=== PATIENT | female | born 1975 | race Caucasian/White ===

== ENCOUNTER 2017-06-09 18:29 | Emergency (ER) | payer BC ==
[~2017-06-09] VITALS: Ht 170.2 cm; Wt 94.0 kg
[~2017-06-09 18:29] MED LIST: CIPR500T4 PO; LORTA5 PO
[2017-06-09 20:15] VITALS: BP 146/84; PULSE 93; RESP 20; TEMP 97.7; O2SAT 97
--- NOTE | 2017-06-09 21:41 | PD ---
HPI Chief Complaint: Abdominal Pain Time Seen by Provider: 21:33 Travel History International Travel<30 days: No Contact w/Intl Traveler<30days: No Traveled to known affect area: No History of Present Illness HPI 41-year-old female presents emergency department for evaluation of right-sided flank pain. This began yesterday morning. Pain is intermittently sharp. She states sometimes it radiates around to the front, left. Patient denies any fever or chills. She has been mildly nauseous. Denies any urinary symptoms. No changes in bowel. No other symptoms to report. PFSH Past Medical History Blood Disorders: No Cancer: Yes (CERVICAL) Cardiovascular Problems: No Chemotherapy: No Endocrine: No Gastrointestinal Disorders: No Genitourinary: No Immune Disorder: No Musculoskeletal: No Neurologic: No Psychiatric: No Reproductive: No Respiratory: No Radiation Therapy: No ?: Unknown LMP: 05/25/16 : 3 Para: 2 Ectopic : Yes Tubal Ligation: Yes Past Surgical History Abdominal Surgery: Yes Cholecystectomy: Yes Gynecologic Surgery: Yes (CERVICAL CA FROZEN) Neurologic Surgery: No Pacemaker: No Other Surgery: Yes (LEFT BREAST BIOPSY) Social History Alcohol Use: Yes (social) Tobacco Use: Yes Substance Use: No Allergies-Medications (Allergen,Severity, Reaction): Coded Allergies: hydromorphone (Unverified Allergy, Severe, Itching, 10/20/16) propofol (Verified Allergy, Severe, 06/09/17) Reported Meds & Prescriptions Reported Meds & Active Scripts Active Zofran Odt (Ondansetron Odt) 4 Mg Tab 4 Mg SL Q8HR PRN Ultram (Tramadol HCl) 50 Mg Tab 50 Mg PO Q8H PRN Cipro (Ciprofloxacin HCl) 500 Mg Tab 500 Mg PO BID 7 Days Review of Systems Except as stated in HPI: all other systems reviewed are Neg Physical Exam Narrative GENERAL: Well-nourished female patient, no acute distress. SKIN: Focused skin assessment warm/dry. HEAD: Atraumatic. Normocephalic. EYES: Pupils equal and round. No scleral icterus. No injection or drainage. ENT: No nasal bleeding or discharge. Mucous membranes pink and moist. NECK: Trachea midline. No JVD. CARDIOVASCULAR: Regular rate and rhythm. No murmur appreciated. RESPIRATORY: No accessory muscle use. Clear to auscultation. Breath sounds equal bilaterally. GASTROINTESTINAL: Abdomen soft, non-tender, nondistended. Hepatic and splenic margins not palpable. MUSCULOSKELETAL: No obvious deformities. No clubbing. No cyanosis. No edema. Right CVA tenderness. NEUROLOGICAL: Awake and alert. No obvious cranial nerve deficits. Motor grossly within normal limits. Normal speech. PSYCHIATRIC: Appropriate mood and affect; insight and judgment normal. Data Data Last Documented VS Vital Signs Date Time Temp Pulse Resp B/P (MAP) Pulse Ox O2 Delivery O2 Flow Rate FiO2 06/09/17 20:15 97.7 93 20 146/84 (104) 97 Orders Orders Complete Blood Count With Diff (06/09/17 20:17) Comprehensive Metabolic Panel (06/09/17 20:17) Urinalysis - C+S If Indicated (06/09/17 20:17) Iv Access Insert/Monitor (06/09/17 20:17) Oxygen Administration (06/09/17 20:17) Oximetry (06/09/17 20:17) Lipase (06/09/17 20:17) Ct Abd/Pel W/O Iv Contrast (06/09/17 ) Ed Urine Pregnancytest Poc (06/09/17 21:41) Urine Culture (06/09/17 20:47) Ed Discharge Order (06/09/17 22:42) Labs Laboratory Tests Test 06/09/17 20:47 White Blood Count 15.5 TH/MM3 Red Blood Count 4.76 MIL/MM3 Hemoglobin 13.2 GM/DL Hematocrit 39.7 % Mean Corpuscular Volume 83.4 FL Mean Corpuscular Hemoglobin 27.8 PG Mean Corpuscular Hemoglobin Concent 33.4 % Red Cell Distribution Width 15.0 % Platelet Count 305 TH/MM3 Mean Platelet Volume 9.5 FL Neutrophils (%) (Auto) 75.5 % Lymphocytes (%) (Auto) 17.3 % Monocytes (%) (Auto) 6.5 % Eosinophils (%) (Auto) 0.4 % Basophils (%) (Auto) 0.3 % Neutrophils # (Auto) 11.7 TH/MM3 Lymphocytes # (Auto) 2.7 TH/MM3 Monocytes # (Auto) 1.0 TH/MM3 Eosinophils # (Auto) 0.1 TH/MM3 Basophils # (Auto) 0.0 TH/MM3 CBC Comment DIFF FINAL Differential Comment Urine Color BROWN Urine Turbidity HAZY Urine pH 6.0 Urine Specific [place] 1.012 Urine Protein TRACE mg/dL Urine Glucose (UA) NEG mg/dL Urine Ketones NEG mg/dL Urine Occult Blood SMALL Urine Nitrite POS Urine Bilirubin NEG Urine Urobilinogen 8.0 MG/DL Urine Leukocyte Esterase MOD Urine RBC 10 /hpf Urine WBC 58 /hpf Urine Squamous Epithelial Cells 5 /hpf Urine Bacteria FEW /hpf Urine Mucus FEW /lpf Microscopic Urinalysis Comment CULTURE INDICATED Blood Urea Nitrogen 9 MG/DL Creatinine 0.83 MG/DL Random Glucose 93 MG/DL Total Protein 7.7 GM/DL Albumin 3.7 GM/DL Calcium Level 9.4 MG/DL Alkaline Phosphatase 67 U/L Aspartate Amino Transf (AST/SGOT) 12 U/L Alanine Aminotransferase (ALT/SGPT) 21 U/L Total Bilirubin 0.3 MG/DL Sodium Level 140 MEQ/L Potassium Level 4.3 MEQ/L Chloride Level 106 MEQ/L Carbon Dioxide Level 28.7 MEQ/L Anion Gap 5 MEQ/L Estimat Glomerular Filtration Rate 76 ML/MIN Lipase 146 U/L MDM Medical Decision Making Medical Screen Exam Complete: Yes Emergency Medical Condition: Yes Medical Record Reviewed: Yes Differential Diagnosis Cystitis versus pyelonephritis versus renal calculi versus biliary colic versus renal colic Narrative Course 41-year-old female presents emergency department for evaluation. Patient appears without distress. Vital signs are stable. She does have right CVA tenderness. Lab work is complete and reviewed. Laboratory Tests Test 06/09/17 20:47 White Blood Count 15.5 TH/MM3 Red Blood Count 4.76 MIL/MM3 Hemoglobin 13.2 GM/DL Hematocrit 39.7 % Mean Corpuscular Volume 83.4 FL Mean Corpuscular Hemoglobin 27.8 PG Mean Corpuscular Hemoglobin Concent 33.4 % Red Cell Distribution Width 15.0 % Platelet Count 305 TH/MM3 Mean Platelet Volume 9.5 FL Neutrophils (%) (Auto) 75.5 % Lymphocytes (%) (Auto) 17.3 % Monocytes (%) (Auto) 6.5 % Eosinophils (%) (Auto) 0.4 % Basophils (%) (Auto) 0.3 % Neutrophils # (Auto) 11.7 TH/MM3 Lymphocytes # (Auto) 2.7 TH/MM3 Monocytes # (Auto) 1.0 TH/MM3 Eosinophils # (Auto) 0.1 TH/MM3 Basophils # (Auto) 0.0 TH/MM3 CBC Comment DIFF FINAL Differential Comment Urine Color BROWN Urine Turbidity HAZY Urine pH 6.0 Urine Specific [place] 1.012 Urine Protein TRACE mg/dL Urine Glucose (UA) NEG mg/dL Urine Ketones NEG mg/dL Urine Occult Blood SMALL Urine Nitrite POS Urine Bilirubin NEG Urine Urobilinogen 8.0 MG/DL Urine Leukocyte Esterase MOD Urine RBC 10 /hpf Urine WBC 58 /hpf Urine Squamous Epithelial Cells 5 /hpf Urine Bacteria FEW /hpf Urine Mucus FEW /lpf Microscopic Urinalysis Comment CULTURE INDICATED Blood Urea Nitrogen 9 MG/DL Creatinine 0.83 MG/DL Random Glucose 93 MG/DL Total Protein 7.7 GM/DL Albumin 3.7 GM/DL Calcium Level 9.4 MG/DL Alkaline Phosphatase 67 U/L Aspartate Amino Transf (AST/SGOT) 12 U/L Alanine Aminotransferase (ALT/SGPT) 21 U/L Total Bilirubin 0.3 MG/DL Sodium Level 140 MEQ/L Potassium Level 4.3 MEQ/L Chloride Level 106 MEQ/L Carbon Dioxide Level 28.7 MEQ/L Anion Gap 5 MEQ/L Estimat Glomerular Filtration Rate 76 ML/MIN Lipase 146 U/L CBC is with leukocytosis of 15.5. CMP is without acute concern. Urinalysis is hazy with small occult blood, positive nitrate, moderate leukocyte esterase, 58 WBC. Patient will be treated for pyelonephritis. I have explained her that since she does not have a fever and the stone is very small with no hydronephrosis, we will attempt outpatient antibiotic first. She agrees to return immediately with any acute worsening symptoms. Diagnosis Primary Impression: Nephrolithiasis Additional Impression: UTI (urinary tract infection) Qualified Codes: N30.01 - Acute cystitis with hematuria Referrals: Primary Care Physician Urologist Patient Instructions: General Instructions, Kidney Stones (ED) Departure Forms: Tests/Procedures, Work Release Enter return to work date: Jun 11, 2017 Additional Instructions: Maintain adequate oral hydration Follow-up with the primary care provider Return immediately with any acute worsening symptoms Med/Other Pt SpecificInfo: Prescription(s) given Scripts Ondansetron Odt (Zofran Odt) 4 Mg Tab 4 MG SL Q8HR Y for Nausea/Vomiting, #15 TAB 0 Refills Prov: Avelina Etienne 06/09/17 Tramadol (Ultram) 50 Mg Tab 50 MG PO Q8H Y for PAIN, #15 TAB 0 Refills Prov: Avelina Etienne 06/09/17 Ciprofloxacin (Cipro) 500 Mg Tab 500 MG PO BID for Infection for 7 Days, #14 TAB 0 Refills Prov: Avelina Etienne 06/09/17 Disposition: 01 DISCHARGE HOME Condition: Stable Avelina Etienne Jun 09, 2017 21:41
[2017-06-09 21:54] LABS: AUTOMATED NEUTROPHIL # 11.7 TH/MM3 (1.8-7.7); BASOPHIL % 0.3 % (0.0-2.0); EOSINOPHIL # 0.1 TH/MM3 (0-0.4); EOSINOPHIL % 0.4 % (0.0-4.0); HEMATOCRIT 39.7 % (35.0-46.0); HEMOGLOBIN 13.2 GM/DL (11.6-15.3); LYMPH % 17.3 % (9.0-44.0); LYMPHOCYTE # 2.7 TH/MM3 (1.0-4.8); MEAN CELL VOLUME 83.4 FL (80.0-100.0); MEAN CORPUSCULAR HEMOGLOBIN 27.8 PG (27.0-34.0); MEAN CORPUSCULAR HGB CONC 33.4 % (32.0-36.0); MEAN PLATELET VOLUME 9.5 FL (7.0-11.0); MONO % 6.5 % (0.0-8.0); NEUT % 75.5 % (16.0-70.0); PLATELET COUNT 305 TH/MM3 (150-450); RED BLOOD COUNT 4.76 MIL/MM3 (4.00-5.30); WHITE BLOOD COUNT 15.5 TH/MM3 (4.0-11.0)
[2017-06-09 22:06] LABS: ALBUMIN 3.7 GM/DL (3.4-5.0); AST (GOT) 12 U/L (15-37); BACTERIA, URINE FEW /hpf; BICARBONATE 28.7 MEQ/L (21.0-32.0); BLOOD UREA NITROGEN 9 MG/DL (7-18); BLOOD, URINE SMALL (NEG); CALCIUM 9.4 MG/DL (8.5-10.1); CHLORIDE 106 MEQ/L (98-107); CREATININE 0.83 MG/DL (0.50-1.00); GLOMERULAR FILTRATION RATE 76 ML/MIN (>89); GLUCOSE,RANDOM 93 MG/DL (74-106); GLUCOSE,URINE NEG (NEG); KETONE, URINE NEG (NEG); MUCUS URINE FEW /lpf (OCC); NITRITE,URINE POS (NEG); SODIUM (NA) 140 MEQ/L (136-145); SQUAMOUS EPITHELIAL CELL URINE 5 /hpf (0-5); URINE LEUKOCYTE ESTERASE MOD (NEG)
[2017-06-09 22:07] LABS: ALT (GPT) 21 U/L (10-53); URINE COLOR BROWN (YELLW/STRAW)
[2017-06-09 22:08] LABS: BILIRUBIN, URINE NEG (NEG)
[2017-06-09 22:09] LABS: ALKALINE PHOSPHATASE 67 U/L (45-117); TOTAL BILIRUBIN ADULT 0.3 MG/DL (0.2-1.0); TOTAL PROTEIN 7.7 GM/DL (6.4-8.2)
--- NOTE | 2017-06-09 22:40 | RADRPT ---
EXAM DATE/TIME: 06/09/2017 22:25 [facility] COMPARISON: No previous studies available for comparison. INDICATIONS : Right flank pain. ORAL CONTRAST: No oral contrast ingested. RADIATION DOSE: 16.6 CTDIvol (mGy) MEDICAL HISTORY : None SURGICAL HISTORY : Cholecystectomy. Tubal ligation. ENCOUNTER: Initial ACUITY: 1 day PAIN SCALE: 5/10 LOCATION: Right flank TECHNIQUE: Volumetric scanning of the abdomen and pelvis was performed. Using automated exposure control and ad justment of the mA and/or kV according to patient size, radiation dose was kept as low as reasonably achievable to obtain optimal diagnostic quality images. DICOM format image data is available electro nically for review and comparison. FINDINGS: The lower lungs are clear and the liver, gallbladder, spleen and pancreas unremarkable There are no renal calcifications identified. There is very mild prominence to the right ureter witho ut perinephric stranding. A the tiny 1 cm calcification in note at the right UVJ. There is no ascites or adenopathy. Uterus is prominent the small 1 cm left adnexal mass. There is no free fluid. The abdominal wall is intact. Review of bone windows reveals only degenerative changes in the thoracic spine. CONCLUSION: Probable small 1 mm right UVJ stone without perinephric stranding. Brando Mosqueda MD FACR on June 09, 2017 at 22:34 Board Certified Radiologist. This report was verified electronically.
[2017-06-09] MEDS ORDERED: ZOFR4TAB3 SL (22:45)
[2017-06-09] MEDS ORDERED: CIPR-9 PO (22:45)
[2017-06-09] MEDS ORDERED: TRAM50 PO (22:45)
== END 2017-06-09 23:05 | disposition home or self-care (01) ==
LOC: NEPD 18:29
DX: N20.0 Calculus of kidney (principal); N30.01 Acute cystitis with hematuria; Z72.0 Tobacco use
CPT/HCPCS: 74176; 80053; 81001; 83690; 84703; 85025; 87077; 87086; 87186